=== PATIENT | female | born 1970 | race Caucasian/White ===

== ENCOUNTER 2018-01-07 10:08 | Day surgery (SDC) | payer OTHER ==
[2018-01-07 10:50] LABS: Absolute Lymphocytes (CBC) 1.1 K/uL (0.7-4.9); Absolute Monocytes 0.7 K/uL (0.1-1.3); Absolute Neutrophil 9.4 K/uL (1.8-8.0); Basophils % 0.4 % (0-1.3); Eosinophils % 1.3 % (0-4.4); Hematocrit 34.9 % (36.0-45.0); Lymphocytes % 10.1 % (15.3-44.8); MCH 29.8 pg (27.0-35.0); MCV 87.6 fL (80-100); MPV 7.1 fL (7.6-11.3); RBC Red Blood Cell Count 3.99 M/uL (3.86-4.86)
--- NOTE | 2018-01-07 10:53 | RAD REPORT ---
EXAM DESCRIPTION: RAD - Chest Pa And Lat (2 Views) - 01/07/2018 10:46 am CLINICAL HISTORY: PRESURGICAL Chest pain. COMPARISON: ABDOMEN 1 VIEW KUB dated 01/24/2015; ABDOMEN 1 VIEW KUB dated 07/09/2013; Abdomen Pelvis W Contrast dated 12/24/2017 FINDINGS: The lungs are clear. The heart is normal in size. No displaced fractures. IMPRESSION: No acute or concerning finding suspected.
[2018-01-07 11:06] LABS: Potassium 4.5 mmol/L (3.5-5.1)
[2018-01-07] MEDS ORDERED: Ringers Lactate 1,000 ML IV ONE (11:17)
[2018-01-07] MEDS ORDERED: CEFAZOLIN/SWI 1gm 1 GM/10 ML SYR ONE (11:17)
[2018-01-07] MEDS ORDERED: ONDANSETRON HCL 40 MG/20 ML VIAL ONE (11:45)
[2018-01-07] MEDS ORDERED: FENTANYL CITR 100 MCG/2 ML ONE ×2 (11:45→12:18)
[2018-01-07] MEDS ORDERED: LIDOCAINE 2% MPF 5 ML VIAL ONE (11:45)
[2018-01-07] MEDS ORDERED: PROPOFOL 200 MG/20 ML VIAL IV ONE (11:45)
[2018-01-07] MEDS ORDERED: MIDAZOLAM HCL 2 MG/2 ML INJ ONE (11:45)
[2018-01-07] MEDS ORDERED: DEXAMETHASONE 10 MG/ML VIAL ONE (12:02)
--- NOTE | 2018-01-07 12:10 | EKG ---
Test Date: 2018-01-07 Test Time: 11:27:29 Table Games Dealer: ARIANE MEASUREMENT RESULTS: Intervals: Rate: 88 MO: 138 QRSD: 88 QT: 376 QTc: 454 Gunlock: P: 72 MO: 138 QRS: 71 T: 65 INTERPRETIVE STATEMENTS: Normal sinus rhythm Normal ECG No previous ECG available for comparison Electronically Signed On 01-07-18 12:09:54 CDT by Aleksander Jerry
--- NOTE | 2018-01-07 12:28 | P.BOP ---
Preoperative diagnosis: perianal pain, perianal abscess, perianal ulcer possible fistula vs neoplas Postoperative diagnosis: perianal pain, perianal abscess Primary procedure: 1. Incision and drainage of perianal abscess, 2. excision bx perianal ulcer Secondary procedure: 3. EUA, 4. Rigid proctoscopy, 5. Anoscopy Specimen: culture, biopsy tissue Findings: anterior perianal abscess with ulceration can't r/o fistula. see dictation Anesthesia: General Complications: None Drain(s): Other Transferred to: Recovery Room Condition: Good
[2018-01-07] MEDS: MEPERIDINE HCL 50 MG/ML AMP ONE ×4 (12:57→13:12)
[2018-01-07] MEDS ORDERED: KETOROLAC 30 MG/ML INJ ONE (12:58)
[2018-01-07 13:12] VITALS: O2SAT 98
[2018-01-07 13:23] VITALS: BP 121/67; TEMP 98.5
[2018-01-07] MEDS ORDERED: HYDROCODONE/APAP 5/325 MG TAB ONE (14:35)
--- NOTE | 2018-01-08 01:42 | DS ---
Diagnoses: Perianal pain, complex perianal abscess, perianal ulcer. Procedure: I and D of perianal abscess, biopsy of perianal ulcer, proctoscopy, anoscopy. Disposition: Home. Activity: As tolerated. No heavy lifting. Followup: Follow up in my office in 1 week. Call for appointment [phone]. Sitz baths 3 times a da y. Medications: Augmentin 875 p.o. q.12., Vicodin q.4 hours p.r.n. pain. We are also going to give Reg dalton p.o. q.6 hours p.r.n. nausea. Allergies: THE PATIENT IS ALLERGIC TO LEVAQUIN, CIPRO, AND FLAGYL. JUNE/CARMITA Voice ID: [id number] Report ID: [id number]
--- NOTE | 2018-01-08 01:42 | OP ---
Date of Procedure: 01/07/2018 Surgeon: Ronald May MD Preoperative Diagnosis: Perianal pain, perianal abscess, perianal ulcer, possible fistula, possible neoplasia. Postoperative Diagnosis: Perianal pain, perianal abscess. Procedure: 1.Incision and drainage of perianal abscess, complex. 2.Excisional biopsy of perianal ulcer. 3.Examination under anesthesia. 4.Rigid proctoscopy. 5.Anoscopy. Anesthesia: General plus local. Specimen: Culture and tissue biopsy. Findings: The patient has internal and external hemorrhoids, but the patient also have a perianal ab scess anteriorly. She has multiple loculations go anterior, go lateral. There is extensive purulent discharge over the area with generalized tissue. The tract just superficial to the center at one po int probably connected to a fistula to just above the dentate line, but I cannot find the connection to that area at this time. The ulcer itself was sent for biopsy to rule out neoplasia. The patient had a small fissure also on the posterior aspect. 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 The patient has been worked up [facility] for the possibility of Crohn disease or any other inflammatory bowel disease, but colonoscop y is scheduled for the next few days, but this came to the point that she has to be sent yesterday by the GI doctor to my office due to purulent discharge and perianal abscess. Then, this patient has t o be booked as soon as possible for the above procedure. The benefits, alternatives, and risks of ab ove procedure fully explained to the patient, which include but are not limited to infection, bleedin g, damage to adjacent structures, anesthesia complication, nonhealing wound, perianal stricture, anal stricture, anal incontinence, damage to the adjacent structures including sphincter, ND, and even de ath. She also understood this may not relieve any symptoms. She might need more than one surgical i ntervention. She understands the importance of sitz baths and continue the workup for an inflammatory bowel disease. She understood and signed a consent. Description Of Procedure: The patient was brought to the operating room, placed in supine position. Anesthesia was done without complication. The patient was placed in lithotomy position. Perianal a abraham was prepped and draped in a sterile fashion. We noticed some pus coming from an abscess from the perianal region. Still we did a rectal examination followed by rigid proctoscopy which was advanced in the central lumen after insufflation under direct visualization up to about 12 cm, limited by the amount of stools present. No masses seen. Then, we placed an anoscope with a window on the side. We have a small fissure in the posterior aspect superficial. We have anteriorly an ulcer with an ope christelle with purulent discharge and fissure goes right near the sphincter. The sphincter was preserved at all times by us. There is an abscess tract superficial to the sphincter near the area of the dentate line, but I did not see any connection there. I cannot find the opening of the fistul a, although it could be a fistula that partially closed. This abscess goes also anteriorly and thus loculations were explored and opened. Pus was removed. Ulcer biopsy was done. An area was profusel y irrigated. Hemostasis was obtained. Local anesthetic was applied. Surgicel was placed over there to help us with the hemostasis. No bleeding. The area was packed with sterile dressings. The richard ent tolerated the procedure well. Cultures were sent, and biopsy was sent. The patient sent to [facility] in stable condition. Sponge count and instrument counts were correct. JUNE/CARMITA Voice ID: [id number] Report ID: [id number]
== END 2018-01-07 15:00 | disposition home or self-care (01) ==
LOC: OR 10:08
PROVIDERS: ATTEND Surgery
PROC: 0DBP8ZX Excision of Rectum, Via Natural or Artificial Opening Endoscopic, Diagnostic (ICD-10-PCS; 2018-01-07)
PROC: 0D9P0ZZ Drainage of Rectum, Open Approach (ICD-10-PCS; principal; 2018-01-07 11:45)
DX: K61.1 Rectal abscess (principal); Z88.1 Allergy status to other antibiotic agents; Z88.8 Allergy status to other drugs, medicaments and biological substances
CPT/HCPCS: 36415; 71046; 80048; 84703; 85025; 87070; 87075; 87077; 87186; 87205; 88304; 88305; 93005; J0690; J1100; J2175; J2250; J2405; J3010

== ENCOUNTER 2018-01-25 18:57 | Emergency (ER) | payer OTHER ==
[2018-01-25] MEDS ORDERED: HYDROCODONE/APAP 7.5/325 MG TAB ONE (20:13)
[2018-01-25] MEDS ORDERED: IBUPROFEN 400 MG TAB ONE (20:13)
--- NOTE | 2018-01-25 20:16 | RAD REPORT ---
EXAM DESCRIPTION: USEXTREMYENI VENOUS UNI LTD01/25/2018 8:09 pm CLINICAL HISTORY: left leg pain and swelling. COMPARISON: None. FINDINGS: Left common femoral, superficial femoral, popliteal and posterior tibial veins are compre ssible and demonstrate augmentation. Doppler demonstrates good flow. IMPRESSION: No evidence of deep venous thrombosis involving the left lower extremity.
--- NOTE | 2018-01-25 20:17 | ER ---
Nurse's Notes [facility] Name: Valerie Garner Age: 47 yrs Sex: Female : 1970 Arrival Date: 01/25/2018 Time: 18:58 Bed 28 Private MD: Osvaldo Machuca B Diagnosis: Pain in left lower leg Presentation: 01/25 19:07 Presenting complaint: Patient states: increasing pain in left calf down to foot since dm5 surgery 2 weeks ago. Pain rated at 2/10 at rest and 6/10 when walking. Transition of care: patient was not received from another setting of care. Onset of symptoms was January 11, 2018. Risk Assessment: Do you want to hurt yourself or someone else? Patient reports no desire to harm self or others. Initial Sepsis Screen: Does the patient meet any 2 criteria? No. Patient's initial sepsis screen is negative. Does the patient have a suspected source of infection? No. Patient's initial sepsis screen is negative. Care prior to arrival: None. 19:07 Method Of Arrival: Ambulatory 5 19:07 Acuity: GEORGE 3 dm5 Triage Assessment: 19:14 General: Appears in no apparent distress. Behavior is calm, cooperative. Pain: dm5 Complains of pain in left calf Pain currently is 2 out of 10 on a pain scale. at worst was 6 out of 10 on a pain scale. Pain began gradually, 2 weeks. Neuro: Level of Consciousness is awake, alert, obeys commands, Oriented to person, place, time. Respiratory: Airway is patent Respiratory effort is even, unlabored, relaxed, Respiratory pattern is regular. Derm: Skin is pink, warm \T\ dry. Musculoskeletal: Swelling absent left leg. 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 - Social history:: Smoking status: unknown. - Ebola Screening: : No symptoms or risks identified at this time. Screenin:22 Abuse screen: Denies threats or abuse. Nutritional screening: No deficits noted. tl3 Tuberculosis screening: No symptoms or risk factors identified. Fall Risk None identified. Assessment: 19:22 General: Appears comfortable, well groomed, well developed, well nourished, Behavior is tl3 calm, cooperative, appropriate for age. Pain: Complains of pain in left leg and left calf Alleviated by rest, Aggravated by weight bearing. Neuro: Level of Consciousness is awake, alert, obeys commands, Oriented to person, place, time, situation, Appropriate for age. Cardiovascular: Patient's skin is warm and dry. Respiratory: Airway is patent Respiratory effort is even, unlabored, Respiratory pattern is regular, symmetrical. GI: No signs and/or symptoms were reported involving the gastrointestinal system. : No signs and/or symptoms were reported regarding the genitourinary system. EENT: No signs and/or symptoms were reported regarding the EENT system. Derm: No signs and/or symptoms reported regarding the dermatologic system. Musculoskeletal: Reports pain in left leg and left calf hx of DVT Denies injury. 20:19 Reassessment: Patient appears in no apparent distress at this time. No changes from tl3 previously documented assessment. Patient and/or family updated on plan of care and expected duration. Pain level reassessed. Patient is alert, oriented x 3, equal unlabored respirations, skin warm/dry/pink. Vital Signs: 19:16 BP 159 / 86; Pulse 68; Resp 18; Pulse Ox 100% on R/A; Weight 89.81 kg; Height 5 ft. 10 dm5 in. (177.80 cm); Pain 2/10; 20:19 BP 119 / 78; Pulse 74; Resp 18; Pulse Ox 99% on R/A; tl3 19:16 Body Mass Index 28.41 (89.81 kg, 177.80 cm) dm5 ED Course: 18:58 Patient arrived in ED. sb2 18:59 Osvaldo Machuca MD is Private Physician. sb2 19:09 Triage completed. dm5 19:16 Arm band placed on right wrist. dm5 19:22 Bryanna Cordero, RN is Primary Nurse. tl3 19:22 Patient has correct armband on for positive identification. Bed in low position. Call tl3 light in reach. Side rails up X 1. Adult w/ patient. Pulse ox on. NIBP on. pt on strict bedrest. 19:22 No provider procedures requiring assistance completed. tl3 19:35 Melchor Saul PA is PHCP. cp 19:35 Bassam Brush MD is Attending Physician. cp 20:07 Ultrasound completed. Patient tolerated well. aa4 20:08 Extremity Venous Unilateral Ltd In Process Unspecified. EDMS 20:18 Miguel wrap to left calf. tl3 20:19 IV discontinued, intact, bleeding controlled, No redness/swelling at site. Pressure tl3 dressing applied. Administered Medications: 20:17 Drug: Hydrocodone-Acetaminophen (7.5 mg-325 mg) 1 tabs Route: PO; tl3 20:18 Follow up: Response: Medication administered at discharge. tl3 20:17 Drug: Ibuprofen 800 mg Route: PO; tl3 20:18 Follow up: Response: Medication administered at discharge. tl3 Outcome: 20:16 Discharge ordered by . cp 20:19 Discharged to home ambulatory. tl3 20:19 Condition: good 20:19 Discharge instructions given to patient, family, Instructed on discharge instructions, follow up and referral plans. medication usage, Demonstrated understanding of instructions, follow-up care, medications. 20:25 Patient left the ED. tl3 Signatures: Dispatcher [employer] EDID Charisse Santiago, RN RN dm5 Odessa Rodriguez aa4 Melchor Saul PA PA Lucero Danielson 2 Bryanna Cordero, RN RN tl3
--- NOTE | 2018-01-25 20:17 | EDPHYS ---
Physician Documentation [facility] Name: Valerie Garner Age: 47 yrs Sex: Female : 1970 Arrival Date: 01/25/2018 Time: 18:58 Bed 28 Private MD: Osvaldo Machuca B ED Physician Bassam Brush HPI: 01/25 19:50 This 47 yrs old Female presents to ER via Ambulatory with complaints of POSS cp BLOOD CLOT. 19:50 The patient presents with pain, that is acute. cp 19:50 The complaints affect the left calf. Context: the patient can fully bear weight, cp concern for possible blood clot. history of recent surgery 2 weeks ago. Onset: The symptoms/episode began/occurred gradually. Modifying factors: the symptoms are aggravated by weight bearing, palpation. Associated signs and symptoms: Pertinent negatives fever, numbness, warmth, weakness. Treatment prior to arrival includes: no previous treatment. 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 - Social history:: Smoking status: unknown. - Ebola Screening: : No symptoms or risks identified at this time. ROS: 19:55 Constitutional: Negative for body aches, chills, fever, poor PO intake. cp 19:55 Eyes: Negative for injury, pain, redness, and discharge. cp 19:55 ENT: Negative for drainage from ear(s), ear pain, sore throat, difficulty swallowing, difficulty handling secretions. 19:55 Cardiovascular: Negative for chest pain, edema, palpitations. 19:55 Respiratory: Negative for cough, dyspnea on exertion, orthopnea, shortness of breath, wheezing. 19:55 Abdomen/GI: Negative for abdominal pain, nausea, vomiting, and diarrhea. 19:55 MS/extremity: Positive for pain, tenderness, of the left calf, Negative for injury or acute deformity, decreased range of motion, paresthesias. 19:55 Skin: Negative for cellulitis, rash. 19:55 Neuro: Negative for altered mental status, headache, syncope, near syncope, weakness. 19:55 All other systems are negative. Exam: 20:00 Constitutional: The patient appears in no acute distress, alert, awake, cp non-diaphoretic, non-toxic, well developed, well nourished. 20:00 Head/Face: Normocephalic, atraumatic. cp 20:00 Eyes: Periorbital structures: appear normal, Conjunctiva: normal, no exudate, no injection, Lids and lashes: appear normal, bilaterally. 20:00 ENT: External ear(s): are unremarkable, Nose: is normal, Mouth: Lips: moist, Oral mucosa: pink and intact, moist, Posterior pharynx: is normal, airway is patent, no erythema, no exudate. 20:00 Chest/axilla: Inspection: normal. 20:00 Cardiovascular: Rate: normal. 20:00 Respiratory: the patient does not display signs of respiratory distress, Respirations: normal, no use of accessory muscles, no retractions, no splinting, no tachypnea. 20:00 Abdomen/GI: Exam negative for discomfort, distension, guarding, Inspection: abdomen appears normal. 20:00 Back: pain, is absent, ROM is normal. 20:00 Musculoskeletal/extremity: Extremities: grossly normal except: noted in the left calf: pain, tenderness, There is no evidence of decreased ROM, erythema, rash, Perfusion: the extremity is normally perfused throughout, Calf tenderness, of the left lower extremeity, Sensation intact. 20:00 Skin: cellulitis, is not appreciated, no rash present. Vital Signs: 19:16 BP 159 / 86; Pulse 68; Resp 18; Pulse Ox 100% on R/A; Weight 89.81 kg; Height 5 ft. 10 dm5 in. (177.80 cm); Pain 2/10; 20:19 BP 119 / 78; Pulse 74; Resp 18; Pulse Ox 99% on R/A; tl3 19:16 Body Mass Index 28.41 (89.81 kg, 177.80 cm) dm5 MDM: 19:40 Patient medically screened. cp 20:00 Differential diagnosis: tendonitis, strain, DVT, cellulitis. cp 20:05 ED course: US tech reports negative DVT study. cp 20:15 Data reviewed: vital signs, nurses notes, radiologic studies, ultrasound. cp 20:15 Counseling: I had a detailed discussion with the patient and/or guardian regarding: the cp historical points, exam findings, and any diagnostic results supporting the discharge/admit diagnosis, radiology results, to return to the emergency department if symptoms worsen or persist or if there are any questions or concerns that arise at home. Response to treatment: the patient's symptoms have markedly improved after treatment, and as a result, I will discharge patient. 01/25 19:47 Order name: US Extremity Venous Unilateral Ltd; Complete Time: 15:28 cp 01/26 15:28 Interpretation: Report reviewed. cp Administered Medications: 20:17 Drug: Hydrocodone-Acetaminophen (7.5 mg-325 mg) 1 tabs Route: PO; tl3 20:18 Follow up: Response: Medication administered at discharge. tl3 20:17 Drug: Ibuprofen 800 mg Route: PO; tl3 20:18 Follow up: Response: Medication administered at discharge. tl3 Disposition: 01/26 01:58 Co-signature as Attending Physician, Bassam Brush MD. rn Disposition: 01/25/18 20:16 Discharged to Home. Impression: Pain in left lower leg. - Condition is Stable. - Discharge Instructions: Musculoskeletal Pain. - Prescriptions for Naprosyn 500 mg Oral Tablet - take 1 tablet by ORAL route 2 times per day take with food; 20 tablet. Cyclobenzaprine 10 mg Oral Tablet - take 1 tablet by ORAL route every 8 hours As needed; 20 tablet. Tramadol 50 mg Oral Tablet - take 1 tablet by ORAL route every 8 hours as needed; 12 tablet. - Medication Reconciliation Form, Thank You Letter, Antibiotic Education, Prescription Opioid Use form. - Follow up: Private Physician; When: 2 - 3 days; Reason: Recheck today's complaints. - Problem is new. - Symptoms have improved. Signatures: Dispatcher [facility] Charisse Callejas RN RN dm5 Bassam Brush MD MD rn Page, Corey, PA PA cp Grafton, Bryanna, RN RN tl3 Corrections: (The following items were deleted from the chart) 01/25 20:25 20:16 01/25/2018 20:16 Discharged to Home. Impression: Pain in left lower leg. tl3 Condition is Stable. Forms are Medication Reconciliation Form, Thank You Letter, Antibiotic Education, Prescription Opioid Use. Follow up: Private Physician; When: 2 - 3 days; Reason: Recheck today's complaints. Problem is new. Symptoms have improved. cp
[2018-01-25 20:37] VITALS: BP 119/78; O2SAT 99
== END 2018-01-25 20:25 | disposition home or self-care (01) ==
LOC: ER 18:57
DX: M79.662 Pain in left lower leg (principal); Z86.718 Personal history of other venous thrombosis and embolism; Z98.84 Bariatric surgery status
CPT/HCPCS: 93971; 99284